=== PATIENT | male | born 1945 | race Caucasian/White ===

== ENCOUNTER 2018-08-22 11:46 | Day surgery (SDC) | payer MEDICARE ==
[~2018-08-22] VITALS: Ht 182.9 cm; Wt 125.0 kg
[2018-08-22] VITALS (9 sets, daily range): BP systolic 149–172; BP diastolic 79–95; PULSE 72–88; TEMP 97.7–98.6
[~2018-08-22 11:46] MED LIST: ALEVE 220MG220 MG PO; ASPIRIN 81M81 MG/TA2 PO; COLACE 100100 MG/CAP PO; LIPITOR20 MG PO; LISINOPRIL; MOTRIN 600600 MG/TAB PO; PERCOCET 325 MG1 TA2 PO; PRAVACHOL10 MG PO; ZESTRIL40 MG PO; vitamin b 12
[2018-08-22] MEDS ORDERED: OPTIFLEX-G 7501 TAB PO (12:31)
[2018-08-22] MEDS ORDERED: HAWTHORN PO (12:32)
[2018-08-22] MEDS ORDERED: EPA FISH OIL1 SGL PO (12:33)
[2018-08-22] MEDS ORDERED: MULTI VITAMINS1 TAB PO (12:33)
[2018-08-22] MEDS ORDERED: SURFAK 240240 MG/CAP PO (12:35)
--- NOTE | 2018-08-22 12:36 | NUR ---
TO RM AT 1158- CALL LIGHT IN REACH AT BEDSIDE.
--- NOTE | 2018-08-22 17:45 | NUR ---
PATIENT ARRIVED TO ROOM 349 VIA BED FROM THE PACU. PATIENT SETTELED INTO ROOM. PATIENT IS DROWSY, BUT EASILY AROUSABLE TO NAME. PATIENT IS A&O. POST-OP VITAL SIGNS STABLE. PATIENT TOLERATING SIPS & CHIPS WITH OUT ANY COMPLAINTS OF N/V. IV FLUIDS INFUSING TO LEFT WRIST IV. BETTS CATHETER TO DEPENDENT DRAINAGE WITH SMALL AMOUNTS OF LIGHT PINK URINE IN BETTS BAG. PATIENT DENIES ANY NEEDS AT THIS TIME.
--- NOTE | 2018-08-22 19:19 | NUR ---
REPORT GIVEN TO MEME REINA.
[2018-08-23 01:02] VITALS: BP 133/93; PULSE 94; TEMP 97.6
--- NOTE | 2018-08-23 01:27 | NUR ---
Upon assessment patient is resting in bed comfortably. Does report some pain to his right flank area, rating it at 4/10. Denies n/v. 3 way catheter with CBI going at a slow to moderate rate, urine bright red in color, some large stringy clots noted, increased rate of irrigation. IV to left wrist with fluids infusing at 100 ml/hr. Patient denies any intervention for pain at this time. No other needs reported.
[2018-08-23 04:19] VITALS: BP 120/73; PULSE 90; TEMP 98.3
--- NOTE | 2018-08-23 07:06 | NUR ---
Patient report given to MEME Ramos. CBI infusing at a slow rate this am. Patient reported minimal pain through the night. 1050 ml urine output, 3000 CBI credit.
--- NOTE | 2018-08-23 08:00 | NUR ---
PATIENT IS SITTING UP IN BED THIS MORNING. PATIENT IS A&O. VSS. BOWEL SOUNDS ACTIVE ALL FOUR QUADRANTS. PATIENT TOLERATING FOOD & LIQUIDS WITHOUT ANY COMPLAINTS OF N/V. POSITIVE PEDAL PULSES EQUAL BILATERALLY. SCD'S TO BLE. 3-WAY BETTS CATHETER TO DEPENDENT DRAINAGE WITH CBI INFUSING AT A SLOW RATE. SMALL AMOUNTS OF REDDISH COLORED URINE PRESENT IN BETTS BAG WITH CLOTS PRESENT. PATIENT DENIES ANY PAIN. LEFT HAND TO INT. CALL LIGHT WITHIN REACH. PATIENT DENIES ANY OTHER NEEDS AT THIS TIME.
[2018-08-23 08:26] VITALS: BP 128/69; PULSE 87; TEMP 98.8
[2018-08-23 12:22] VITALS: BP 114/81; PULSE 83; TEMP 98.3
--- NOTE | 2018-08-23 15:09 | NUR ---
First visit from the propeller tester. No needs right now.
[2018-08-23 16:51] VITALS: BP 125/72; PULSE 73; TEMP 98.5
[2018-08-23 19:22] VITALS: BP 124/77; PULSE 78; TEMP 98.3
--- NOTE | 2018-08-23 19:24 | NUR ---
REPORT GIVEN TO MEME LOPEZ.
--- NOTE | 2018-08-23 20:00 | NUR ---
Patient in bed resting. Alert and oriented x3. Shift assessment complete. Avalos to dependent drainage with clear pink urine with occasional clots. CBI infusing at very slow rate. Denies pain at this time. Denies further needs at this time.
[2018-08-24 03:36] VITALS: BP 132/72; PULSE 72; TEMP 98.2
--- NOTE | 2018-08-24 06:43 | NUR ---
Patient has rested well through the night. minimal needs. Hand irrigated x2 through the night with small clots removed. Clamped CBI at 0500 this AM, urine remained pink without clots. Primed bladder with 200 ml of NS. Removed 25ml of fluid from balloon. Discontinued anton, Patient tolerated procedure well. Educated patient on 6 cup routine. Verbalized understanding. Denies further needs at this time. Will report off to day shift.
[2018-08-24 07:21] VITALS: BP 140/90; PULSE 78; TEMP 98.6
--- NOTE | 2018-08-24 08:11 | NUR ---
Patient sitting up in recilner when staff enters room. States he is experiencing no discomfort besides an "odd feeling" after having anton removed. Patient ordered breakfast and had 100% intake. Ambulates without difficulty.
--- NOTE | 2018-08-24 11:55 | NUR ---
Patient ready for discharge. His going to pick him up. Spoke to Dr. Anderson orders obtained. Patient 6 bottle completed. Pale clear pink urine. Voiding without difficutly. Patient IV removed. He showered. All discharge instructions given including diet & activity restrictions. He is aware of follow up appt. Denies questions or concerns. Patient ambulated out his taking him home.
== END 2018-08-24 11:58 | disposition home or self-care (01) ==
LOC: SDCO 11:46 → SURG 18:25 → SDCO 08-24 11:58
DX: C67.4 Malignant neoplasm of posterior wall of bladder (principal); C67.2 Malignant neoplasm of lateral wall of bladder; N13.1 Hydronephrosis with ureteral stricture, not elsewhere classified; R31.9 Hematuria, unspecified; I10 Essential (primary) hypertension; E78.5 Hyperlipidemia, unspecified; Z79.82 Long term (current) use of aspirin; Z79.899 Other long term (current) drug therapy
CPT/HCPCS: C1769; C2617; J0690; J1100; J1170; J2270; J2405; J2704; J3010; J3480; J7120; Q9967

== ENCOUNTER → 2018-09-13 | Outpatient (CLI) | payer MEDICARE ==
[~2018-09-13] MED LIST changes: +EPA FISH OIL1 SGL PO; +HAWTHORN PO; +MULTI VITAMINS1 TAB PO; +OPTIFLEX-G 7501 TAB PO; +SURFAK 240240 MG/CAP PO
== END ==
LOC: COL.VAS 09:25
DX: Z51.11 Encounter for antineoplastic chemotherapy (principal); C67.9 Malignant neoplasm of bladder, unspecified; I51.7 Cardiomegaly; Q21.1 Atrial septal defect; I35.1 Nonrheumatic aortic (valve) insufficiency
CPT/HCPCS: Q9967

== ENCOUNTER 2018-09-25 05:19 | Day surgery (SDC) | payer MEDICARE ==
[~2018-09-25] VITALS: Ht 185.4 cm; Wt 124.6 kg
[2018-09-25 06:23] VITALS: BP 149/83; PULSE 79; TEMP 98.2
[2018-09-25 08:42] VITALS: BP 114/65; PULSE 67
--- NOTE | 2018-09-25 08:42 | NUR ---
Patient returns to room 8 per cart from surgery and is awake and alert. Temp 97.3 and room air sats 99%. Port a catheter site dry with porter set dressing dry and intact. IV fluids infusing and site is free of redness. Denies pain or nausea. Siderails up x2. Call light in reach.
[2018-09-25] MEDS ORDERED: COLACE 100100 MG/CAP PO (08:46)
[2018-09-25] MEDS ORDERED: NORCO 325 MG-51 TAB PO ×2 (08:46→08:54)
[2018-09-25 08:57] VITALS: BP 112/66; PULSE 64
--- NOTE | 2018-09-25 08:57 | NUR ---
Drinking water and resting with eyes closed.
[2018-09-25 09:12] VITALS: BP 140/76; PULSE 61
--- NOTE | 2018-09-25 09:12 | NUR ---
Eating muffin and drinking juice. Continues to deny pain or nausea.
--- NOTE | 2018-09-25 09:15 | NUR ---
IV discontinued and patient is able to dress self. Ambulatory across the hallway to void. Tolerates activity well.
--- NOTE | 2018-09-25 09:38 | NUR ---
Given dismissal instructions and voices understanding of home cares and follow up as needed. Provided port a catheter information to be kept with the patient.
--- NOTE | 2018-09-25 09:40 | NUR ---
Patient dismissed to home per private vehicle driven by spouse with instructions in hand. Provided script for [place]. Taken to the vehicle per wheelchair and assisted into car by RN.
== END 2018-09-25 09:40 | disposition home or self-care (01) ==
LOC: SDCO 05:19
DX: C67.9 Malignant neoplasm of bladder, unspecified (principal); I11.9 Hypertensive heart disease without heart failure; E78.00 Pure hypercholesterolemia, unspecified; Z79.899 Other long term (current) drug therapy; Z79.82 Long term (current) use of aspirin; I34.0 Nonrheumatic mitral (valve) insufficiency; E66.01 Morbid (severe) obesity due to excess calories; Z68.34 Body mass index [BMI] 34.0-34.9, adult; Z87.891 Personal history of nicotine dependence; G89.29 Other chronic pain; M54.5 Low back pain; Z80.0 Family history of malignant neoplasm of digestive organs; Z80.42 Family history of malignant neoplasm of prostate; Z80.8 Family history of malignant neoplasm of other organs or systems
CPT/HCPCS: C1788; J0690; J2704; J3010; J7120

== ENCOUNTER 2018-11-30 09:20 | Inpatient (IN) | payer MEDICARE, OTHER ==
[~2018-11-30] VITALS: Ht 185.4 cm; Wt 123.4 kg
[~2018-11-30 09:20] MED LIST changes: +NORCO 325 MG-51 TAB PO
[2019-01-03] VITALS (15 sets, daily range): BP systolic 83–139; BP diastolic 50–94; PULSE 60–99; TEMP 97.3–98.7
[2019-01-03] MEDS ORDERED: NATURAL MAGNES200 MG PO (06:52)
--- NOTE | 2019-01-03 07:08 | NUR ---
Patient admitted to room 8 ambulatory at 0536 and oriented to room. Voiced understanding of the surgery and consent signed. Right port a catheter accessed and good blood return. Fluids connected to site. Spouse at bedside and call light in reach. Siderails up x2.
[2019-01-03 12:21] LABS: HEMATOCRIT 38.7 % (42.0-52.0); HEMOGLOBIN 12.7 g/dl (13.5-18.0); MEAN CELL VOLUME 102 fl (80.0-100.0); MEAN CORPUSCULAR HEMOGLOBIN 34 pg (27.0-31.0); MEAN CORPUSCULAR HGB CONC 33 g/dl (33.0-37.0); MEAN PLATELET VOLUME 9.1 fl (7.4-10.4); PLATELET COUNT 165 K/mm3 (130-400); RED BLOOD COUNT 3.79 M/mm3 (4.20-5.60); REDCELL DISTRIBUTION WIDTH-CV 12.2 % (11.5-14.5)
[2019-01-03 12:29] LABS: CALCIUM 8.4 mg/dL (8.4-10.2); CREATININE, serum 1.09 (0.66-1.25); MAGNESIUM 1.8 mg/dL (1.6-2.3); PHOSPHOROUS 4.3 mg/dL (2.5-4.5); POTASSIUM 4.8 mmol/L (3.4-5.0)
[2019-01-03 12:42] LABS: BAND 10 % (0-10); BASOPHIL 1 % (0-2); LYMPHOCYTE 5 % (20.0-51.0); NEUTROPHILS 83 % (42.0-75.2); PLATELET ESTIMATE NORMAL (NORMAL)
--- NOTE | 2019-01-03 12:50 | NUR ---
PATIENT ADMITED INTO ROOM 348 POST OP. A&O. NOTED LOW B/P OF 83/54. ALL OTHER VSS. DENIES PAIN. EPIDURAL INPLACE AND INFUSING AT 7CC/HR. ABDOMINAL DRESSING IS CD&I WITH GAUZE. ILEUCONDUIT TO DEPENDENT DRAINAGE WITH MOD AMOUNTS OF CLEAR YELLOW URINE NOTED. INDWELLING BETTS TO DEPENDENT DRAINAGE WITH SCANT AMOUNTS OF BLOODY DRAINAGE NOTED. QUENTIN DRAIN TO LIS WITH SMALL AMOUNTS OF BLOODY DRAINAGE. IV FLUIDS INFUSING A 250CC BOLUS FOR SOFT PRESSURES INTO RIGHT CHEST PORT. LEFT HAND IV TO INT. NPO. HEAD TO TOE ASSESSMENT COMPLETE. ORIENTED TO ROOM. CALL LIGHT IN REACH. AT BEDSIDE.
--- NOTE | 2019-01-03 18:05 | NUR ---
PATIENT LYING IN BED WITH HOB 30 DEGREES. NPO. GIVEN TOOTHETTES FOR ORAL CARE. PATIENT IS A&O. PLEASANT AND COOPERATIVE WITH CARES. DENIES ANY PAIN AT THIS TIME. CALL W/IN REACH. REPORTED OFF TO PRIMARY NURSE SURAJ.
--- NOTE | 2019-01-03 20:24 | NUR ---
Pt. sitting up in bed at this time. Pt. is A&OX3, assessment complete. INT to lt. hand patent. Port to rt. chest patent, IV fluids infusing per orders. Pt. reports no pain at this time. Epidural intact. Dressing to midline abd. incision CDI. Jessica drain to lt. abd. dressing CDI. Jessica drain to LIS, minimal drainage noted. Ileal conduit to lt. abd. urine is jayne in color. Pt. also has a anton catheter with minimal bloody drainage noted. Pt. denies further needs at this time. Call light within reach.
[2019-01-04 05:22] VITALS: BP 103/63; PULSE 86
--- NOTE | 2019-01-04 06:32 | NUR ---
Pt. slept well through the night between disturbances. Pt. remains A&OX3. PORT to rt. chest patent, IV fluids infusing per orders. INT to lt. hand patent. Pt. denies pain. Epidural intact. Ileal conduit to anton bag, urine remains jayne with some clots noted. Ostomy bag intact. Jessica drain to lt. abd., Jessica drain to LIS, minimal bloodly drainage noted. Pt. denies further needs, call light within reach.
[2019-01-04 07:19] LABS: MEAN CELL VOLUME 102 fl (80.0-100.0); MEAN CORPUSCULAR HEMOGLOBIN 34 pg (27.0-31.0); MEAN CORPUSCULAR HGB CONC 33 g/dl (33.0-37.0); MEAN PLATELET VOLUME 9.6 fl (7.4-10.4); PLATELET COUNT 177 K/mm3 (130-400); RED BLOOD COUNT 3.28 M/mm3 (4.20-5.60); REDCELL DISTRIBUTION WIDTH-CV 12.6 % (11.5-14.5)
[2019-01-04 07:20] LABS: HEMATOCRIT 33.3 % (42.0-52.0)
[2019-01-04 07:44] LABS: CALCIUM 8.5 mg/dL (8.4-10.2); CREATININE, serum 1.08 (0.66-1.25); MAGNESIUM 1.8 mg/dL (1.6-2.3); PHOSPHOROUS 3.3 mg/dL (2.5-4.5); POTASSIUM 4.3 mmol/L (3.4-5.0)
--- NOTE | 2019-01-04 08:15 | NUR ---
Patient in bed resting. Alert and oriented x 3. Shift assessment complete. Abdominal gauze dressing with minimal drainge. Jessica drain to left abdomen to LIS with bloody drainge noted to tubing. Avalos to depenent drainag with minimal bloody drainage noted. Ileal conduit to right abdomen with jayne urine noted. Dr. Anderson in to see patient this morning. Epidural intact, denies pain at this time. Denie further needs at this time.
[2019-01-04 08:40] LABS: BAND 8 % (0-10); LYMPHOCYTE 3 % (20.0-51.0); MYELOCYTE 2 % (0-0); NEUTROPHILS 85 % (42.0-75.2); PLATELET ESTIMATE NORMAL (NORMAL)
[2019-01-04 09:06] VITALS: BP 134/73; PULSE 91; TEMP 99.2
--- NOTE | 2019-01-04 11:27 | NUR ---
Initial visit; Patient thanked Medical Billing Service for looking in on him and offering God's blessings.
[2019-01-04 12:24] VITALS: BP 134/88; PULSE 100; TEMP 98.4
--- NOTE | 2019-01-04 13:48 | NUR ---
SW met with patient and to discuss discharge planning. Patient lives independently at home with his and plans to return there upon discharge. Patient's PCP is Dr Aguila and he obtains prescriptions from [facility]. Patient does not use any DME or home health. Patient does not have a DPOA but would like to complete that form. SW provided. SW's witnessed signature and provided original and copies. SW also placed a copy on the chart. KIRK does not anticipate any discharge needs.
[2019-01-04 15:53] VITALS: BP 121/61; PULSE 87; TEMP 98.7
--- NOTE | 2019-01-04 17:34 | NUR ---
PATIENT IS SITTING UP IN BED. SON AT BEDSIDE VISITING. HAS BEEN UP X1 SINCE 2PM TO WALK BACK TO BED FROM CHAIR. GAIT STEADY. WALKS WITH 1:1. A&OX4. DENIES PAIN. PATIENT SAYS "I'M PASSING EVEN MORE GAS NOW THAN EARLIER." AT BEDSIDE EARLIER THIS AFTERNOON. CALL LIGHT W/IN REACH. REPORTED OFF TO PRIMARY NURSE JESSICA.
--- NOTE | 2019-01-04 18:47 | NUR ---
Patient has been up in recliner throughout most of the day, currently resting in bed. Jessica cut and bagged this AM, continues to drain small amount of bloody drainage. Avalos to dependent drainage with minimal bloody output. Urostomy with stents, flushed without complications, draining jayne urine. Midline incision with gauze is CDI. Denies pain or further needs at this time. Reported off to film processing shift supervisor.
[2019-01-04 20:00] VITALS: BP 113/63; PULSE 92; TEMP 98.6
--- NOTE | 2019-01-04 20:00 | NUR ---
REPORT RECEIVED. 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 ASSESSMENT COMPLETE. VS STABLE. DENIES PAIN. DENIES N/V. PLAN OF CARE DISCUSSED FOR THIS SHIFT-IRRIGATING STENTS. VERBALIZES UNDERSTANDING. LEN DRAIN TO DEPENDENT DRAINAGE. NOTED TO HAVE SMALL AMOUNT OF BLOODY DRAINAGE IN BAG. BETTS CATH TO DEPENDENT DRAINAGE WELL-NOTED TO HAVE A SCANT AMOUNT OF BLOODY DRAINAGE. MIDLINE DRESSING CLEAN/DRY/INTACT. EPIDURAL FOR PAIN CONTROL. DENIES SHORTNESS OF BREATH. DENIES NEEDS. CALL LIGHT WITHIN REACH. BED IN LOW POSITION. WHEELS LOCKED. WILL MONITOR.
[2019-01-04 23:44] VITALS: BP 112/61; PULSE 89; TEMP 98.3
[2019-01-05 04:10] VITALS: BP 103/64; PULSE 78; TEMP 98.2
--- NOTE | 2019-01-05 04:30 | NUR ---
STENTS FLUSHED AT THIS TIME X2-NS 3MLS EACH. FLUSHED WITHOUT DIFFICULTY. CHANGED OUT BAGS-EMPTIED 20MLS OF BLOODY FLUID. TOLERATED WELL. DENIES PAIN. ENCOURAGED TO CALL FOR QUESTIONS OR CONCERNS. WILL MONITOR.
--- NOTE | 2019-01-05 06:46 | NUR ---
REPORT GIVEN TO MEME LOPEZ
[2019-01-05 07:52] VITALS: BP 124/65; PULSE 86; TEMP 98.5
--- NOTE | 2019-01-05 08:01 | NUR ---
Patient in bed resting. Alert and oriented x 3. Shift assessment complete. Jessica to dependent drainage with small amount of red tinged drainage present. Anton to dependent drainage with minimal bloody drainage present. Ileal conduit to anton bag with jayne urine present. Midline incision with gauze is CDI. SCDs to BLE. Patient denies pain at this time. States that he is feeling better today and would like to go for a walk later this morning. Denies further needs at this time.
[2019-01-05 11:41] VITALS: BP 149/78; PULSE 86; TEMP 98.2
--- NOTE | 2019-01-05 14:18 | NUR ---
Patient ambulated in medina >100 ft. Stand by assist with steady gait.
--- NOTE | 2019-01-05 15:30 | NUR ---
Dr. Villaseñor in to see patient.
[2019-01-05 16:32] VITALS: BP 123/69; PULSE 100; TEMP 98.8
--- NOTE | 2019-01-05 18:32 | NUR ---
Patient has been up in the recliner throughout the day. Denies pain at this time. Ileal conduit maintained to dependent drainage with jayne urine present, stents flushed without complications. Jessica drain with serosanguinous drainage. Scant output from anton. Denies pain or further needs at this time. Will report off to maintenance mechanic 2nd shift.
[2019-01-05 20:00] VITALS: BP 118/64; PULSE 90; TEMP 98
--- NOTE | 2019-01-05 20:00 | NUR ---
REPORT RECEIVED. 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 ASSESSMENT COMPLETE. EPIDURAL CONTROLLING PAIN. VS HAVE REMAINED STABLE. PLAN OF CARE DISCUSSED FOR THIS SHIFT. HAS BEEN PASSING GAS AND AMBULATING. LEN DRAIN WITH SCANT AMOUNT OF DRAINAGE-RED IN COLOR. ILEAL CONDUIT TO DEPENDENT DRAINAGE WITH CLEAR YELLOW URINE. BETTS CATH WITH SCANT AMOUNT OF BLOODY FLUID. TOLERATING CLEAR LIQUID DIET-NO N/V. DENIES ANY QUESTIONS OR CONCERNS. ENCOURAGED TO CALL FOR NEEDS. WILL MONITOR.
[2019-01-05 22:19] VITALS: BP 127/66; PULSE 94; TEMP 98.4
[2019-01-06] VITALS: BP 131/76; PULSE 93; TEMP 98.4
[2019-01-06 03:48] VITALS: BP 119/75; PULSE 89; TEMP 98.4
--- NOTE | 2019-01-06 06:09 | NUR ---
HAS RESTED WELL THROUGH THE NIGHT. STENTS FLUSHED WITH 3MLS OF NS-WITHOUT DIFFICULTY. DRESSING [id number] WELL APPROXIMATED. UP TO AMBULATE THIS SHIFT AND HAD A LIQUID BOWEL MOVEMENT. DID GET SHORT OF BREATH-O2 ON AT 2L TO MAINTAIN 92%. DENIES PAIN. WILL CONTINUE TO MONITOR.
[2019-01-06 07:29] VITALS: BP 134/80; PULSE 94; TEMP 98.3
--- NOTE | 2019-01-06 08:00 | NUR ---
Ambulates well to bathroom with standby assist. Denies pain. Epidural infusing. Complained of mild nausea after activity. Minimal bloody drainage from anton. Ileal conduit draining yellow urine. Jessica drain intact with minimal serosanguinous drainage. States passing gas. Taking clear liquids slowly.
[2019-01-06 11:26] VITALS: BP 113/68; PULSE 90; TEMP 98.5
--- NOTE | 2019-01-06 15:00 | NUR ---
Ambulatory in room. Mild nausea with activity. Denies pain. Urinary stents flushed with NS. Midline incision CDI. New dressing applied.
[2019-01-06 16:03] VITALS: BP 139/78; PULSE 84; TEMP 99.3
[2019-01-06 19:37] VITALS: BP 147/76; PULSE 87; TEMP 98.9
--- NOTE | 2019-01-06 19:45 | NUR ---
Bedside report received from MEME Michaels
--- NOTE | 2019-01-06 20:00 | NUR ---
Assessment complete. Patient resting in bed comfortably at this time. He is alert and oriented x4, but sleeps between disturbances. Patient has complaints of mild pain, but otherwise states the epidural is helping a lot. Lungs are clear, HR regular, Bowel sounds are active. Patient's incision looks good, there is a small around of drainage on the dressing. Patient's ileal conduit is producing urine with small blood clots. Drainage is serosanguinous in the zafar drain bag with some small clots. Patient has no other needs at this time. Will continue to monitor. Call light within reach.
[2019-01-07] VITALS (8 sets, daily range): BP systolic 126–170; BP diastolic 73–96; PULSE 81–98; TEMP 97.4–98.9
--- NOTE | 2019-01-07 | NUR ---
Patient up to the restroom at this time. Standby assist. Patient has a watery stool. Return to bed. Patient states he is having no pain at this time. No further needs. Will continue to monitor. Call light within reach.
--- NOTE | 2019-01-07 04:00 | NUR ---
Patient up to the restroom at this time. Standby assist. Patient returns to bed and says he wishes to rest more. Rates pain 2/10. Says pain gets up to 4/10 when getting up and walking, but states that it is much improved from yesterday. No further needs at this time. Will continue to monitor. Call light within reach.
--- NOTE | 2019-01-07 07:20 | NUR ---
Bedside report given to MEME Ramos
--- NOTE | 2019-01-07 10:00 | NUR ---
report received from MEME Ramos. Pt resting in bed, changed midline dressing with telfa and paper tape. L drain is SS, small amount. R ileal conduit draining jayne urine to DD. Avalos catheter draining minimal bloody drainage. Epidural in place managing pain well. PT ate jello this am and stomach is upset but does not want medications at this time, positive gas and has had 3 loose BMs in last 24 hours. CNAs to provide bed baths. Will continue to monitor.
--- NOTE | 2019-01-07 11:44 | NUR ---
Called Dr. Anderson regarding pt nausea. Orders received, he will address home medications when he visits the patient tonight. Will provide medications and continue to monitor.
--- NOTE | 2019-01-07 16:53 | NUR ---
Dale Wynn here to see pt at this time, ostomy site changed. Pt still taking minimal PO due to nausea. Is going to try some jello again now. WIll conitnue to monitor.
[2019-01-07 17:14] LABS: BASO % 0.1 % (0.0-2.0); EOS # 0.1 (0.0-0.7); EOS % 1.3 % (0-4.0); GRAN # 6.1 (1.4-6.5); GRAN % 77.6 % (42.2-75.2); HEMOGLOBIN 10.8 g/dl (13.5-18.0); LYMPH # 0.9 (1.2-3.4); LYMPH % 11.8 % (20.0-51.0); MEAN CELL VOLUME 101 fl (80.0-100.0); MEAN CORPUSCULAR HEMOGLOBIN 34 pg (27.0-31.0); MEAN CORPUSCULAR HGB CONC 34 g/dl (33.0-37.0); MEAN PLATELET VOLUME 9.3 fl (7.4-10.4); MONO # 0.7 (0.1-0.6); MONO % 8.3 % (1.7-9.3); PLATELET COUNT 212 K/mm3 (130-400); RED BLOOD COUNT 3.17 M/mm3 (4.20-5.60); REDCELL DISTRIBUTION WIDTH-CV 11.9 % (11.5-14.5)
[2019-01-07 17:15] LABS: CALCIUM 8.6 mg/dL (8.4-10.2); CREATININE, serum 0.92 (0.66-1.25); POTASSIUM 3.7 mmol/L (3.4-5.0)
--- NOTE | 2019-01-07 17:56 | NUR ---
Pt has had epidural taken out with INDUSTRIAL ROOFER HELPER.
--- NOTE | 2019-01-07 18:25 | NUR ---
Pt has been nauseated this afternoon but states it feels better than it has been. Alcohol wipes helping for nausea to smell as needed. Taking some PO tonight. Called Dr. Anderson and left a VM regarding pt care. Midline dressing is CDI since changing it earlier today. Ileal conduit draining jayne urine. Jessica draining moderate amount of SS drainage. Pt up to bathroom approximately every hour for diarrhea. Epidural out. Will give bedside shift report to nightshift nurse who will resume care.
--- NOTE | 2019-01-07 21:38 | NUR ---
Pt. laying in bed at this time. Pt. is A&OX3, assessment complete. Pt. reported nausea earlier in the shift, gave nellifrrupali, see mar. Dr. Gonzalez notified of lack of home medications and pain medication. New orders reveived. Avalos catheter to Penis also removed per orders from Lisa. Pt. continues to have frequent loose stools. Pt. denies pain or other needs at this time. Call light within reach.
[2019-01-08 06:10] VITALS: BP 136/81; PULSE 76; TEMP 97.9
--- NOTE | 2019-01-08 06:32 | NUR ---
Pt. slept well through the night. Pt. remains A&OX3. PORT to rt. chest patent. Jessica drain with serosangenous drainage noted. Ileal conduit with clear jayne urine noted. Pt. denies further needs, call light within reach.
[2019-01-08 07:27] VITALS: BP 132/67; PULSE 81; TEMP 98.2
--- NOTE | 2019-01-08 10:30 | NUR ---
Patient alert and oriented, answers questions appropriately. See assessment. Abdomen soft, non distended, non tender. Bowel sounds active x4 quads. +Flatus. Ileal conduit with stoma pink and intact, anton bag to dependent drainage. Jessica drain with no issues noted at site, small amount of drainage noted in bag. Midline incision with edges well approximated, no redness or drainage noted to site. No c/o at this time.
[2019-01-08 11:19] VITALS: BP 127/69; PULSE 80; TEMP 98.5
[2019-01-08 16:28] VITALS: BP 111/64; PULSE 77; TEMP 98.5
--- NOTE | 2019-01-08 20:00 | NUR ---
REPORT RECEIVED. 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 ASSESSMENT COMPLETE. VS STABLE. DENIES PAIN. LEN DRAIN TO DEPENDENT DRAINAGE-EMPTIED AT THIS TIME-125MLS BLOODY FLUID. ILEUL CONDUIT WITH STENTS TO DEPENDENT DRAINAGE-STENTS FLUSHED WITH 3MLS NS EACH. TOLERATED WELL. MIDLINE GAUZE DRESSING C/D/I. DENIES NEEDS AT THIS TIME BUT ENCOURAGED TO CALL. CALL LIGHT WITHIN REACH. BED IN LOW POSITION. WHEELS LOCKED.
[2019-01-08 20:43] VITALS: BP 106/51; PULSE 79; TEMP 98.8
[2019-01-08 23:41] VITALS: BP 113/67; PULSE 76; TEMP 98.3
[2019-01-09 05:01] VITALS: BP 112/65; PULSE 85; TEMP 97.9
[2019-01-09 09:24] VITALS: BP 120/82; PULSE 88; TEMP 98.5
--- NOTE | 2019-01-09 10:00 | NUR ---
Patient alert and oriented, answers questions appropriately. See assessment. Jessica drain in place to LLQ, serosanguinous drainage noted. Midline incision with edges well approximated, ry intact, redness noted, scant amount of yellow drainage noted. Ileal conduit in place and draining clear jayne urine, stents in place. No c/o at this time.
--- NOTE | 2019-01-09 11:59 | NUR ---
KIRK met with the patient regarding home health. KIRK presented a list to the from [employer] of agencies that serve the [facility]. The patient chose [facility]. KIRK faxed the referral. SW awaiting for a reply from [facility].
--- NOTE | 2019-01-09 13:14 | NUR ---
Jessica drain discontinued with no issues at this time. Stents discontinued from ileal conduit at this time with no issues.
--- NOTE | 2019-01-09 14:15 | NUR ---
Harini from [facility] reports that they can accept the patient for home health services. SW faxed discharge orders to [facility]. There are no additional needs at this time.
--- NOTE | 2019-01-09 15:37 | NUR ---
Discharge instructions reviewed with patient, verbalized understanding. Discharged ambulatory to auto/home with spouse at 1535.
--- NOTE | 2019-01-09 15:38 | NUR ---
Port-a-cath deaccessed prior to discharge.
== END 2019-01-09 15:35 | disposition home or self-care (01) | DRG 655 ==
LOC: INPTSU 01-03 05:24 → SURG 01-03 07:30
PROVIDERS: ADMIT Urology
PROC: 0T1 Urinary System, Bypass (ICD-10-PCS; 2019-01-03)
PROC: 07BC4ZZ Excision of Pelvis Lymphatic, Percutaneous Endoscopic Approach (ICD-10-PCS; 2019-01-03)
PROC: 0TTB4ZZ Resection of Bladder, Percutaneous Endoscopic Approach (ICD-10-PCS; principal; 2019-01-03 07:30)
DX: C67.9 Malignant neoplasm of bladder, unspecified (principal); E78.5 Hyperlipidemia, unspecified; I10 Essential (primary) hypertension; G89.29 Other chronic pain; M54.5 Low back pain; Z79.82 Long term (current) use of aspirin; Z96.651 Presence of right artificial knee joint; Z87.891 Personal history of nicotine dependence
CPT/HCPCS: A9284; C2617; J0690; J1100; J2250; J2370; J2405; J2704; J2710; J2765; J2795; J3010; J7030; J7050; J7120; J7121

== ENCOUNTER → 2019-03-11 | Outpatient (CLI) | payer MEDICARE, OTHER ==
[~2019-03-11] MED LIST changes: +NATURAL MAGNES200 MG PO
== END ==
LOC: COL.RAD 09:20
DX: C67.9 Malignant neoplasm of bladder, unspecified (principal); M89.8X0 Other specified disorders of bone, multiple sites; Z90.6 Acquired absence of other parts of urinary tract; Z93.6 Other artificial openings of urinary tract status; Z96.651 Presence of right artificial knee joint
CPT/HCPCS: A9503

== ENCOUNTER → 2019-05-30 | Outpatient (CLI) | payer MEDICARE, OTHER | LOC: COL.RAD 09:41 | DX: C67.9 Malignant neoplasm of bladder, unspecified (principal); M89.9 Disorder of bone, unspecified; Z98.890 Other specified postprocedural states | CPT/HCPCS: Q9967 ==

== ENCOUNTER → 2019-06-03 | Outpatient (CLI) | payer MEDICARE, OTHER | LOC: COL.RAD 09:28 | DX: C67.9 Malignant neoplasm of bladder, unspecified (principal) | CPT/HCPCS: A9503 ==

== ENCOUNTER → 2019-09-17 | Outpatient (CLI) | payer MEDICARE, OTHER | LOC: COL.RAD 08:51 | DX: C67.9 Malignant neoplasm of bladder, unspecified (principal); K46.9 Unspecified abdominal hernia without obstruction or gangrene; M89.9 Disorder of bone, unspecified; Z90.49 Acquired absence of other specified parts of digestive tract; Z95.9 Presence of cardiac and vascular implant and graft, unspecified | CPT/HCPCS: A9503; Q9967 ==

== ENCOUNTER → 2019-09-30 | Outpatient (CLI) | payer MEDICARE, OTHER ==
[2019-09-30] VITALS (14 sets, daily range): BP systolic 87–127; BP diastolic 65–86; PULSE 65–82
[~2019-09-30] VITALS: Ht 185.4 cm; Wt 119.0 kg
[~2019-09-30] MED LIST changes: +NEURONTIN300 MG/CAP PO; +TYLENOL 500MG500 MG PO
--- NOTE | 2019-09-30 10:30 | NUR ---
Pt to ct per wheelchair. Pt placed in supine position on ct table. Monitors applied.
--- NOTE | 2019-09-30 11:02 | NUR ---
Specimen obtained by Dr. Sorto and placed in formalin. Specimen labeled.
== END ==
LOC: COL.RAD 09:21
DX: C67.9 Malignant neoplasm of bladder, unspecified (principal)
CPT/HCPCS: J2250; J3010

== ENCOUNTER → 2021-02-05 | Outpatient (CLI) | payer MEDICARE, OTHER | LOC: COL.RAD 10:58 | DX: C67.9 Malignant neoplasm of bladder, unspecified (principal); C79.51 Secondary malignant neoplasm of bone; Z90.79 Acquired absence of other genital organ(s) | CPT/HCPCS: Q9967 ==